=== PATIENT | male | born 1995 | race Caucasian/White ===

== ENCOUNTER 2020-08-10 04:02 | Emergency (ER) | payer OTHER, SELFPAY ==
--- NOTE | 2020-08-10 04:07 | ED.GENADULT ---
HPI - General Adult General Chief complaint: Upper Respiratory Symptoms Stated complaint: strep since /sore throat/ear infection Time Seen by Provider: 08/10/20 04:06 Source: patient Mode of arrival: Ambulatory Limitations: no limitations History of Present Illness HPI narrative: Patient is a 24-year-old male who last Tuesday was seen that his medical department [facility] on the [facility] for sore throat. He states that he was called on and was informed that he tested positive for strep throat. He was given a prescription of azithromycin. It was 500 mg and he is instructed to take 3 times a day. Yesterday he completed the 3rd day of this treatment. He states that he can swallow but it is painful. No problems breathing. Is having right ear pain. He states that the pain is slightly better since he started the antibiotics. Is here because he thought that his symptoms should be more improved than what they are now. Related Data Previous Rx's Medication Instructions Recorded azithromycin 500 mg PO DAILY 1 Days #1 tab 08/10/20 Allergies Allergy/AdvReac Type Severity Reaction Status Date / Time amoxicillin Allergy Verified 08/10/20 04:15 Review of Systems Constitutional Constitutional: Denies chills, Denies fever(s) and Denies headache(s) Eyes Eyes: Denies change in vision ENT Ears, Nose, Mouth, and Throat: Denies vertigo, Denies dizziness, Reports otalgia, Denies headache(s), Denies sinus pressure, Reports sore throat, Reports throat swelling and Denies tongue swelling Cardiovascular Cardiovascular: Denies dyspnea Respiratory Respiratory: Denies cough and Denies dyspnea Gastrointestinal Gastrointestinal: Denies nausea and Denies vomiting Integumentary/Breasts Skin/Breast: Denies lesions and Denies rash Neurologic Neurologic: Denies behavioral changes, Denies vertigo, Denies dizziness and Denies headache(s) Psychiatric Psychiatric: Denies behavioral changes Hematologic/Lymphatic Hematologic/Lymphatic: Denies easy bleeding and Denies easy bruising Allergic/Immunologic Allergic/Immunologic: Reports throat swelling and Denies tongue swelling Patient History Medical History Healthy adult (Acute) Social History Smoking Status: Never smoker Exam Initial Vital Signs Initial Vital Signs: Vital Signs Temperature 98.0 F 08/10/20 04:10 Pulse Rate 98 H 08/10/20 04:10 Respiratory Rate 16 08/10/20 04:10 Blood Pressure 169/85 H 08/10/20 04:10 Pulse Oximetry 96 08/10/20 04:10 Const General: cooperative and comfortable Limitations: mental status not altered HENMT Head: normal to inspection and normocephalic Ears: TM's normal bilaterally Nose: external nose normal Face and sinus: normal facial exam Mouth: oral mucosae normal Teeth and gingiva: dentition normal Throat: uvula midline, abnormal tonsil on the right erythema, exudates and hypertrophy, no peritonsillar masses and uvula not displaced Resp Effort & Inspection: normal respiratory effort Skin Lesions: no lesions Rashes: no rashes Neuro General: patient alert, patient awake and patient oriented x3 Cognition: normal cognition Speech: speech normal Extrem General: normal to inspection and capillary refill normal Psych Appearance: grossly normal and well kempt Course Orders Ordered: ED Orders 08/10/20 04:32 Throat Culture Stat Discontinued Medications Azithromycin (Zithromax) 500 mg PO NOW ONE Stop: 08/10/20 04:27 Last Admin: 08/10/20 04:35 Dose: 500 mg Documented by: WANDA Dexamethasone (Decadron) 16 mg PO NOW ONE Stop: 08/10/20 04:28 Last Admin: 08/10/20 04:35 Dose: 16 mg Documented by: WANDA Ketorolac Tromethamine (Toradol) 30 mg IM NOW ONE Stop: 08/10/20 04:29 Last Admin: 08/10/20 04:35 Dose: 30 mg Documented by: WANDA Vital Signs Vital signs: Vital Signs - 8 hr 08/10/20 04:10 Temperature 98.0 F Pulse Rate 98 H Respiratory Rate 16 Blood Pressure 169/85 H Pulse Oximetry 96 Medical Decision Making MDM Narrative Medical decision making narrative: Patient without respiratory distress. His right ear is unremarkable I suspect that his your symptoms are related to the swelling on the right side of his oropharynx. He does have erythema bilaterally in his posterior oropharynx however the right side is certainly larger than the left side. The uvula is midline. He does have exudates. Recommended treatment for strep throat with azithromycin as 500 mg for 5 days not 3 days. He was given a dose of this medicine here in the ER and a prescription for the remaining 1 day. Who is also given Decadron to help with the symptoms and also Toradol. Feel we can hold on IV medicines for now. I did consider complications such as peritonsillar abscess however feel given his presentation that completing 5 day course of the antibiotic and giving him steroids may potentially help his symptoms however if he returns with worsening symptoms are not improved symptoms than peritonsillar abscess should be more strongly considered. I did discuss this with the patient. He stated that he could contact his medical department tomorrow for follow-up and return to the ER if his symptoms worsened. Discharge Plan Departure Patient Disposition: Home Clinical Impression: Strep pharyngitis Instructions: DI for Strep Throat Activity Restrictions/Additional Instructions: We are going to extend her antibiotics for 2 days. He you have already completed 3 days of the antibiotics. You were given your 4th days worth of antibiotics here in the ER. And you were given a prescription for day 5. You were also given steroids here in the ER which should help with your symptoms. You should see some improvement of your symptoms over the next 24-48 hours. If your symptoms do not improve or if they start to worsen please return to the emergency department for further evaluation. Prescriptions: New azithromycin 500 mg tablet 500 mg PO DAILY 1 Days Qty: 1 RF: 0
[2020-08-10 04:10] VITALS: BP 169/85; PULSE 98; RESP 16; TEMP 36.7; O2SAT 96; BMI 30.2
[2020-08-10] MEDS: AZITHROMYCIN 250 MG TABLET 500 MG PO (04:35)
[2020-08-10] MEDS: KETOROLAC 60 MG/2 ML VIAL 30 MG IM (04:35)
[2020-08-10] MEDS: dexAMETHasone 4 MG TABLET 16 MG PO (04:35)
[2020-08-10 04:45] VITALS: BP 148/79; PULSE 92; RESP 16; O2SAT 97
--- NOTE | 2020-08-11 08:45 | PC.NURSE ---
group a strep result reported from lab. Discussed findings with provider and appropriatness of ABX. Provider requests we call patient and see how they are doing. if not improving provider will call in a script for cipro.
--- NOTE | 2020-08-11 08:47 | PC.NURSE ---
Phone contact made with patient. Patient reports I feel 10 times better Patient instructed to finish entire course of abx and return if symptoms worsen or continue. Patient thanked staff for phone call.
== END 2020-08-10 04:45 | disposition home or self-care (01) ==
PROVIDERS: Emergency Provider Emergency Medicine
DX: J02.0 Streptococcal pharyngitis (principal); H92.01 Otalgia, right ear
CPT/HCPCS: 87070; 87077; 87147; 96372; 99283; J1885